=== PATIENT | female | born 1990 | race Caucasian/White ===

== ENCOUNTER 2017-06-19 10:32 | Outpatient (CLI) | payer BC ==
--- NOTE | 2017-06-20 06:22 | EKG ---
Test Reason : Blood Pressure : / mmHG Vent. Rate : 073 BPM Atrial Rate : 073 BPM P-R Int : 114 ms QRS Dur : 092 ms QT Int : 384 ms P-R-T Axes : 039 065 037 degrees QTc Int : 423 ms Normal sinus rhythm Normal ECG No previous ECGs available Confirmed by PASTORA RAGSDALE ([id number] on 06/20/2017 5:56:16 AM Referred By: DIANNE Confirmed By:PASTORA RAGSDALE
== END 2017-06-19 10:33 | disposition home or self-care (01) ==
LOC: EKG 10:32
PROVIDERS: ATTEND Orthopaedic Surgery
DX: Z01.818 Encounter for other preprocedural examination (principal); M47.27 Other spondylosis with radiculopathy, lumbosacral region
CPT/HCPCS: 93005; 93010

== ENCOUNTER 2018-08-01 07:27 | Outpatient (CLI) | payer BC ==
--- NOTE | 2018-08-01 11:25 | MRI ---
LEFT FOOT MRI WITHOUT IV CONTRAST: Date: 08/01/18 HISTORY: Extensor tendon tear left third toe, crush injury. TECHNIQUE: Multiplanar, multisequence MRI examination of the left foot is performed. FINDINGS: There are some very subtle nonspecific STIR hyperintensity within the distal phalanx of the great toe , no associated T1 hypointensity. The flexor, extensor, and peroneus tendons appear intact. No eviden ce for an extensor tendon tear. The intrinsic muscles of the foot appear within normal limits. Very m inute degenerative changes of the first toe metatarsophalangeal joint. Sinus tarsi and spring ligamen t regions are unremarkable. Achilles tendon and plantar fascia are unremarkable. No talar dome osteoc hondral lesion. Medial and lateral ankle lateral ligament complexes are unremarkable as visualized. IMPRESSION: No evidence for an extensor tendon tear. Some very subtle nonspecific STIR hyperintensity of the dist al phalanx of the great toe with normal T1 signal. Possibilities could include that of minimal contus ion or possibly could be stress related. No other significant acute process. POS: C
== END 2018-08-01 07:28 | disposition home or self-care (01) ==
LOC: SCSMRI 07:27
PROVIDERS: ATTEND Podiatrist Foot & Ankle Surgery
DX: S97.122A Crushing injury of left lesser toe(s), initial encounter (principal); S96.112A Strain of muscle and tendon of long extensor muscle of toe at ankle and foot level, left foot, initial encounter